=== PATIENT | female | born 1955 | race Caucasian/White ===

== ENCOUNTER 2020-01-01 10:44 | Outpatient (CLI) | payer OTHER, SELFPAY ==
--- NOTE | ~2020-01-01 | DEXA_ITS ---
BMD(1) Young-Adult(2) Age-Matched(3) Region (g/cm2) T-score Z-score WHO Classification L1 1.131 -0.1 1.2 Normal L2 1.262 0.4 1.7 Normal L3 1.258 0.3 1.6 Normal L4 1.325 0.8 2.1 Normal L1-L4 1.254 0.5 1.7 Normal Trend: L1-L4 Change vs Change vs Measured Age BMD(1) Baseline Previous Date ([age]) (g/cm2) (%) (%) 01/01/2020 [age] 1[age]254 baseline - 1 - Statistically 68% of repeat scans fall within 1SD (+- 0.010 g/cm2 for AP Spine L1-L4) 2 - [place] (Combined NHANES (ages 20-30) / [employer] (ages 20-40)) AP Spine Reference Population (v112) 3 - Matched for Age, Weight (females 25-100 kg), Ethnic 11 - World Health Organization - Definition of Osteoporosis and Osteopenia for Women: Norm al = T-score at or above -1.0 SD; Osteopenia = T-score between -1.0 and -2.5 SD; Osteoporosis = T-sco re at or below -2.5 SD; (WHO definitions only apply when a young healthy Women reference da tabase is used to determine T-scores.) Printed: 01/01/2020 11:56:50 AM (13.60)76:3.00:50.00:12.0 0.00:9.42 0.60x1.05 23.1:%Fat=48.9% 0.00:0.00 0.00:0.00 Filename: [email or web address] Scan Mode: Standard;OneScan 37.0 Inbilin [id number] BMD(1) Young-Adult(2,7) Age-Matched(3) Region (g/cm2) T-score Z-score WHO Classification Neck Left 0.978 -0.4 0.8 Normal Right 1.037 0.0 1.2 Normal Mean 1.008 -0.2 1.0 Normal Difference 0.059 0.4 0.4 - Total Left 1.046 0.3 1.3 Normal Right 1.023 0.1 1.1 Normal Mean 1.035 0.2 1.2 Normal Difference 0.023 0.2 0.2 - Hip [place] Length Comparison (mm) (Right = 99.5 mm) (Mean = 103.9 mm) (Left = 102.0 mm) Trend: Total Mean Change vs Change vs Measured Age BMD(1) Baseline Previous Date (years) (g/cm2) (%) (%) 01/01/2020 64.1 1[age]035 baseline - 1 - Statistically 68% of repeat scans fall within 1SD (+- 0.010 g/cm2 for [employer] Total) 2 - [place] (Combined NHANES (ages 20-30) / [employer] (ages 20-40)) Femur Reference Population (v112) 3 - Matched for Age, Weight (females 25-100 kg), Ethnic 7 - [employer] Total T-score difference is 0.2. Asymmetry is None. 11 - World Health Organization - Definition of Osteoporosis and Osteopenia for Women: Norm al = T-score at or above -1.0 SD; Osteopenia = T-score between -1.0 and -2.5 SD; Osteoporosis = T-sco re at or below -2.5 SD; (WHO definitions only apply when a young healthy Women reference da tabase is used to determine T-scores.) Printed: 01/01/2020 11:56:50 AM (13.60); Filename: [email or web address]; Right Femur; 19.1:%Fat=31.6%; Neck Angle (deg)= 60; Scan Mode: Standard 37.0 uGy; Left Femur; 18.3:%Fat=32.3%; Neck Angle (deg)= 59; Scan Mode: Standard 37.0 uGy [employer] [id number] Dear Guillermo Gudino, Your patient Yina Mclaughlin completed a BMD test on 01/01/2020 using the [employer] DXA System (a nalysis version: 13.60) manufactured by [employer]. The following summarizes the results of our e valuation. PATIENT BIOGRAPHICAL: Name: Yina Mclaughlin Date : 1955 Height: 62.5 in. Gender: Female Exam Date: 01/01/2020 Weight: 160.0 lbs.
== END 2020-01-01 10:45 | disposition home or self-care (01) ==
PROVIDERS: PCP Family Medicine; Visit Provider Family Medicine
DX: Z78.0 Asymptomatic menopausal state (principal)
CPT/HCPCS: 77080